=== PATIENT | male | born 1945 | race Caucasian/White ===

== ENCOUNTER 2018-01-10 11:43 | Emergency (ER) | payer MEDICARE ==
[~2018-01-10] VITALS: Ht 180.3 cm; Wt 113.0 kg
[2018-01-10] MEDS ORDERED: BACTRIM DS1 TAB PO (13:29)
[2018-01-10] MEDS ORDERED: BENADRYL 25MG C25 MG PO (13:29)
[2018-01-10] MEDS ORDERED: KEFLEX500 M1 PO (13:29)
[2018-01-10 13:32] VITALS: BP 138/60
== END 2018-01-10 13:52 | disposition home or self-care (01) ==
LOC: ED 11:43
DX: T63.441A Toxic effect of venom of bees, accidental (unintentional), initial encounter (principal); L08.9 Local infection of the skin and subcutaneous tissue, unspecified; E11.9 Type 2 diabetes mellitus without complications; I10 Essential (primary) hypertension